=== PATIENT | female | born 1960 | race Hispanic/Latino ===

== ENCOUNTER 2017-12-03 16:36 | Emergency (ER) | payer MEDICAID ==
[~2017-12-03 16:36] MED LIST: ACET-2900 PO; ESOM20CA31 PO; GEMF600T3 PO; GLIM4TAB3 PO; LINA5TAB PO; LISI10TA7 PO; METF10004 PO; METO25TA6 PO; SIMV40TA2 PO; TRAV5DRO OU
[2017-12-03] MEDS ORDERED: SODIUM CHLORIDE 0.9% 1000ML 1,000 ML IV ONE (16:55)
[2017-12-03 17:02] LABS: EOSINOPHILS % (AUTO) 0.6 % (0.0-8.0); HEMATOCRIT 39.5 % (36-48); LYMPHOCYTES % (AUTO) 29.5 % (21.0-51.0); MEAN CORPUSCULAR HEMOGLOBIN 29.4 pg (27.0-33.0); MEAN CORPUSCULAR VOLUME 89.1 fL (79-99); MONOCYTES % (AUTO) 5.3 % (3.0-13.0); NEUTROPHILS % (AUTO) 63.6 % (40.0-77.0); PLATELET COUNT (AUTO) 305 K/uL (130-400); RED BLOOD CELL COUNT(AUTO) 4.44 MIL/uL (4.00-5.50); RED CELL DISTRIBUTION WIDTH 13.8 % (11.0-15.5); WHITE BLOOD COUNT (AUTO) 13.8 K/uL (4.8-10.8)
[2017-12-03 17:20] LABS: CREATININE 1.4 mg/dL (0.5-1.5)
[2017-12-03 17:32] LABS: POTASSIUM 3.9 mmol/L (3.5-5.1)
[2017-12-03] MEDS ORDERED: INSULIN HUMULIN R 100 UNIT/ML 3ML ONE (18:13)
== END 2017-12-03 18:26 | disposition home or self-care (01) ==
LOC: EDH 16:36
DX: E11.65 Type 2 diabetes mellitus with hyperglycemia (principal); E78.5 Hyperlipidemia, unspecified; I10 Essential (primary) hypertension; H40.9 Unspecified glaucoma; Z90.49 Acquired absence of other specified parts of digestive tract
CPT/HCPCS: 36415; 80048; 82948; 85025; 93005; 96360; 96372; 99285; J1815; J7030

== ENCOUNTER 2022-02-01 13:25 | Inpatient (IN) | payer MEDICAID ==
[~2022-02-01] VITALS: Ht 152.4 cm; Wt 64.4 kg
[2022-02-01 12:00] VITALS: BP 87/58
[~2022-02-01 13:25] MED LIST changes: -ACET-2900 PO; +ACET-3194 PO; -GEMF600T3 PO; +GEMF600T89 PO; -GLIM4TAB3 PO; +GLIM4TAB36 PO; +LISI10TA24 PO; -LISI10TA7 PO; +METF-446 PO; -METF10004 PO
[2022-02-01] MEDS ORDERED: ONDANSETRON 4MG INJ IV ONE (14:00)
[2022-02-01] MEDS ORDERED: ONDANSETRON 4MG INJ IVP ONE (14:00)
[2022-02-01] MEDS ORDERED: MORPHINE 4 MG SYG IVP ONE (14:00)
[2022-02-01] MEDS ORDERED: LACTATED RINGERS 1000ML 1,000 ML IV ONE (14:00)
[2022-02-01 14:03] LABS: BASOPHILS % (AUTO) 0.2 % (0.0-5.0); EOSINOPHILS % (AUTO) 0.1 % (0.0-8.0); HEMATOCRIT 26.9 % (36-48); LYMPHOCYTES % (AUTO) 10.6 % (21.0-51.0); MEAN CORPUSCULAR HEMOGLOBIN 28.7 pg (27.0-33.0); MEAN CORPUSCULAR VOLUME 89.7 fL (79-99); MONOCYTES % (AUTO) 6.7 % (3.0-13.0); NEUTROPHILS % (AUTO) 81.7 % (40.0-77.0); PLATELET COUNT (AUTO) 308 K/uL (130-400); RED CELL DISTRIBUTION WIDTH 13.1 % (11.0-15.5); WHITE BLOOD COUNT (AUTO) 19.1 K/uL (4.8-10.8)
[2022-02-01 14:17] LABS: ALBUMIN 3.2 g/dL (3.5-5.0); APPEARANCE,URINE CLEAR (CLEAR); BILIRUBIN,URINE NEGATIVE (NEGATIVE); COLOR,URINE YELLOW (YELLOW); CREATININE 1.4 mg/dL (0.5-1.5); GLUCOSE, URINE (UA) NEGATIVE (NEGATIVE); KETONES,URINE NEGATIVE (NEGATIVE); LEUKOCYTE ESTERASE ,URINE NEGATIVE (NEGATIVE); NITRATE,URINE NEGATIVE (NEGATIVE); OCCULT BLOOD,URINE NEGATIVE (NEGATIVE); POTASSIUM 4.3 mmol/L (3.5-5.1); PROTEIN,URINE NEGATIVE (NEGATIVE); TOTAL PROTEIN, SERUM 8.2 g/dL (6.0-8.3); UROBILINOGEN,URINE 0.2 mg/dL (0.2-1.0)
[2022-02-01] MEDS ORDERED: MORPHINE 2 MG SYG IVP SCH (14:30)
[2022-02-01] MEDS ORDERED: ZOSYN 3.375GM +NS 50ML IV SCH (14:30)
[2022-02-01] MEDS ORDERED: IOHEXOL 350 MG/ML 100ML INFUS..BTL IV ONE (14:54)
[2022-02-01] MEDS ORDERED: 0.9%NACL 1000ML 1,000 ML IV SCH ×2 (16:30)
[2022-02-01] MEDS ORDERED: MAG/ALUM/SIMETH 30 ML UDCUP PO PRN (17:00)
[2022-02-01] MEDS ORDERED: ACETAMINOPHEN WITH CODEINE 1 TAB TAB PO PRN ×2 (17:00)
[2022-02-01] MEDS ORDERED: LACTULOSE 20 GM/30 ML UDCUP PO PRN (17:00)
[2022-02-01] MEDS ORDERED: ONDANSETRON 4MG INJ IV PRN (17:00)
[2022-02-01] MEDS ORDERED: ACETAMINOPHEN 325 MG TAB PO PRN ×2 (17:00)
[2022-02-01] MEDS ORDERED: DIPHENHYDRAMINE HCL 25 MG CAPSULE PO PRN (17:00)
[2022-02-01] MEDS: LACTATED RINGERS 1000ML 1,000 ML IV SCH (18:01)
[2022-02-01] MEDS: FAMOTIDINE 20MG VIAL IV SCH (18:07)
[2022-02-01] MEDS: MORPHINE 4 MG SYG IV PRN (18:10)
[2022-02-01] MEDS ORDERED: GLUCAGON 1MG KIT 1 MG ML IM PRN (19:00)
[2022-02-01] MEDS ORDERED: DEXTROSE 50%-WATER 50 ML DISP.SYRIN IV PRN (19:00)
[2022-02-01] MEDS: 0.9%NACL 1000ML 1,000 ML IV SCH (19:00)
[2022-02-01] MEDS: INSULIN HUMULIN R 100 UNIT/ML 3ML SQ SCH (20:23)
[2022-02-01] MEDS: ZOSYN 3.375GM+NS 50ML 50 ML IV SCH (22:52)
[2022-02-02] VITALS: BP 87/58
[2022-02-02] MEDS ORDERED: GABA-529 PO (00:44)
[2022-02-02] MEDS ORDERED: trulicity (00:44)
[2022-02-02] MEDS ORDERED: METO25TA6 PO (00:44)
[2022-02-02] MEDS ORDERED: ROSU40TA21 PO (00:44)
[2022-02-02] MEDS ORDERED: METF-446 PO (00:44)
[2022-02-02] MEDS ORDERED: MELO-108 PO (00:44)
[2022-02-02] MEDS ORDERED: LISI20TA24 PO (00:44)
[2022-02-02 04:21] VITALS: BP 96/51
[2022-02-02] MEDS: ZOSYN 3.375GM+NS 50ML 50 ML IV SCH ×3 (05:22→20:24)
[2022-02-02 05:35] LABS: ALBUMIN 2.4 g/dL (3.5-5.0); BASOPHILS % (AUTO) 0.3 % (0.0-5.0); CREATININE 1.3 mg/dL (0.5-1.5); EOSINOPHILS % (AUTO) 0.1 % (0.0-8.0); HEMATOCRIT 23.8 % (36-48); LYMPHOCYTES % (AUTO) 10.7 % (21.0-51.0); MEAN CORPUSCULAR HEMOGLOBIN 29.2 pg (27.0-33.0); MEAN CORPUSCULAR HGB CONC 32.4 g/dL (32.0-36.0); MEAN CORPUSCULAR VOLUME 90.2 fL (79-99); MONOCYTES % (AUTO) 7.7 % (3.0-13.0); NEUTROPHILS % (AUTO) 80.4 % (40.0-77.0); PLATELET COUNT (AUTO) 267 K/uL (130-400); POTASSIUM 5.1 mmol/L (3.5-5.1); RED BLOOD CELL COUNT(AUTO) 2.64 MIL/uL (4.00-5.50); TOTAL PROTEIN, SERUM 6.6 g/dL (6.0-8.3); WHITE BLOOD COUNT (AUTO) 15.5 K/uL (4.8-10.8)
[2022-02-02] MEDS: INSULIN HUMULIN R 100 UNIT/ML 3ML SQ SCH ×4 (06:16→20:24)
[2022-02-02 07:10] VITALS: BP 95/58
[2022-02-02] MEDS: ENOXAPARIN SODIUM 30 MG/0.3 ML SQ SCH (09:03)
[2022-02-02] MEDS: FAMOTIDINE 20MG VIAL IV SCH (09:03)
[2022-02-02] MEDS: 0.9%NACL 1000ML 1,000 ML IV SCH (11:58)
[2022-02-02] MEDS: LACTATED RINGERS 1000ML 1,000 ML IV SCH ×2 (11:58→22:51)
[2022-02-02 12:18] VITALS: BP 95/57
[2022-02-02 16:00] VITALS: BP 90/57
[2022-02-02 22:10] VITALS: BP 97/60
[2022-02-03] VITALS (19 sets, daily range): BP systolic 69–116; BP diastolic 31–81
[2022-02-03] MEDS: 0.9%NACL 1000ML 1,000 ML IV SCH ×5 (00:19→21:00)
[2022-02-03] MEDS: MORPHINE 4 MG SYG IV PRN (01:55)
[2022-02-03] MEDS: ZOSYN 3.375GM+NS 50ML 50 ML IV SCH ×3 (04:27→20:57)
[2022-02-03 04:39] LABS: BASOPHILS % (AUTO) 0.3 % (0.0-5.0); HEMATOCRIT 26.3 % (36-48); LYMPHOCYTES % (AUTO) 7.8 % (21.0-51.0); MEAN CORPUSCULAR HEMOGLOBIN 28.4 pg (27.0-33.0); MEAN CORPUSCULAR HGB CONC 31.2 g/dL (32.0-36.0); MONOCYTES % (AUTO) 7.3 % (3.0-13.0); NEUTROPHILS % (AUTO) 83.9 % (40.0-77.0); PLATELET COUNT (AUTO) 278 K/uL (130-400); RED BLOOD CELL COUNT(AUTO) 2.89 MIL/uL (4.00-5.50); RED CELL DISTRIBUTION WIDTH 13.3 % (11.0-15.5); WHITE BLOOD COUNT (AUTO) 15.3 K/uL (4.8-10.8)
[2022-02-03 04:56] LABS: ALBUMIN 2.6 g/dL (3.5-5.0); CREATININE 1.4 mg/dL (0.5-1.5); POTASSIUM 4.6 mmol/L (3.5-5.1); TOTAL PROTEIN, SERUM 7.2 g/dL (6.0-8.3)
[2022-02-03] MEDS: INSULIN HUMULIN R 100 UNIT/ML 3ML SQ SCH ×4 (07:16→21:07)
[2022-02-03] MEDS: FAMOTIDINE 20MG VIAL IV SCH (08:27)
[2022-02-03] MEDS: ENOXAPARIN SODIUM 30 MG/0.3 ML SQ SCH (08:27)
[2022-02-03] MEDS ORDERED: LORAZEPAM 2 MG/ML 1 ML VIAL IVP PRN (10:30)
[2022-02-03] MEDS ORDERED: DIAZEPAM 5 MG/ML 2 ML SYG IV PRN (11:00)
[2022-02-03] MEDS ORDERED: VASOPRESSIN 20 UNITS in 0.9%NACL 100ML 100 ML IV SCH (14:30)
[2022-02-03] MEDS ORDERED: VANCOMYCIN PROTOCOL PER PHARMACY IV SCH (14:30)
[2022-02-03] MEDS ORDERED: PHENYLEPHRINE HCL 50 MG in 0.9% NACL 250ML 250 ML IV PRN (14:30)
[2022-02-03] MEDS ORDERED: SODIUM BICARB 50MEQ 50ML VIAL 150 ML ONE (14:46)
[2022-02-03 15:00] LABS: INR 1.53 (0.85-1.15); PROTHROMBIN TIME 16.3 SEC (9.6-11.6)
[2022-02-03] MEDS ORDERED: SODIUM BICARB 8.4% 50ML SYRING 150 MEQ in DEXTROSE 5%-WATER 1,000 ML IVP SCH (15:00)
[2022-02-03] MEDS ORDERED: SODIUM BICARB 50MEQ 50ML VIAL IV SCH (15:00)
[2022-02-03 15:11] LABS: ABG BASE EXCESS -7.3 mmol/L (-2.0-3.0); ABG HCO3 15.6 mmol/L (21.0-28.0); ABG OXYGEN SATURATION 96.7 % (95.0-99.0); ABG PCO2 23 mmHg (32-45)
[2022-02-03] MEDS ORDERED: VANCOMYCIN 1G/250ML KIT 250 ML IV SCH (16:00)
[2022-02-03] MEDS ORDERED: DIATR MEGLU/DIATRIZOATE SODIUM 30 ML BOTTLE ONE (17:21)
[2022-02-03 21:11] LABS: ABG BASE EXCESS 0.3 mmol/L (-2.0-3.0); ABG OXYGEN SATURATION 98.1 % (95.0-99.0); ABG PCO2 28 mmHg (32-45)
[2022-02-03] MEDS: GUAIFENESIN SUGAR-FREE 100 MG/5 ML UDCUP PO PRN (23:17)
[2022-02-04] VITALS (40 sets, daily range): BP systolic 104–158; BP diastolic 41–98
[2022-02-04] MEDS: GUAIFENESIN SUGAR-FREE 100 MG/5 ML UDCUP PO PRN ×4 (03:46→20:32)
[2022-02-04 03:59] LABS: BASOPHILS % (AUTO) 0.1 % (0.0-5.0); HEMATOCRIT 22.2 % (36-48); MEAN CORPUSCULAR HEMOGLOBIN 28.3 pg (27.0-33.0); MEAN CORPUSCULAR HGB CONC 32.9 g/dL (32.0-36.0); MONOCYTES % (AUTO) 7.1 % (3.0-13.0); NEUTROPHILS % (AUTO) 81.1 % (40.0-77.0); PLATELET COUNT (AUTO) 272 K/uL (130-400); RED BLOOD CELL COUNT(AUTO) 2.58 MIL/uL (4.00-5.50); RED CELL DISTRIBUTION WIDTH 13.4 % (11.0-15.5); WHITE BLOOD COUNT (AUTO) 14.1 K/uL (4.8-10.8)
[2022-02-04 04:27] LABS: ALBUMIN 2.5 g/dL (3.5-5.0); CREATININE 2.6 mg/dL (0.5-1.5); POTASSIUM 3.4 mmol/L (3.5-5.1)
[2022-02-04] MEDS: ZOSYN 3.375GM+NS 50ML 50 ML IV SCH ×3 (05:05→20:32)
[2022-02-04] MEDS: INSULIN HUMULIN R 100 UNIT/ML 3ML SQ SCH ×4 (06:39→20:36)
[2022-02-04] MEDS: 0.9%NACL 1000ML 1,000 ML IV SCH ×2 (06:39→09:33)
[2022-02-04 07:30] LABS: ABG BASE EXCESS -0.6 mmol/L (-2.0-3.0); ABG HCO3 22.5 mmol/L (21.0-28.0); ABG OXYGEN SATURATION 96.9 % (95.0-99.0); ABG PCO2 30 mmHg (32-45)
[2022-02-04] MEDS: FAMOTIDINE 20MG VIAL IV SCH (08:14)
[2022-02-04] MEDS ORDERED: VANCOMYCIN 500MG+NS 100ML 100 ML IV SCH (09:00)
[2022-02-04] MEDS ORDERED: FLUCONAZOLE 400 MG/NS 200 ML 200 ML IV SCH (09:00)
[2022-02-04] MEDS: ENOXAPARIN SODIUM 30 MG/0.3 ML SQ SCH (11:48)
[2022-02-04] MEDS ORDERED: 0.9%NACL 1000ML 1,000 ML IV ONE (13:30)
[2022-02-04] MEDS ORDERED: PHARMACY COMMUNICATION MISC SCH (14:30)
[2022-02-04] MEDS ORDERED: 0.9%NACL 1000ML 1,000 ML IV SCH (14:30)
[2022-02-04] MEDS: MICAFUNGIN 100MG+NS 100ML 100 ML IV SCH (16:01)
[2022-02-05] VITALS (41 sets, daily range): BP systolic 106–130; BP diastolic 40–96
[2022-02-05] MEDS: 0.9%NACL 1000ML 1,000 ML IV SCH ×2 (02:30→12:38)
[2022-02-05 03:36] LABS: BILIRUBIN,URINE MODERATE (NEGATIVE); GLUCOSE, URINE (UA) NEGATIVE (NEGATIVE); KETONES,URINE 5 mg/dL (NEGATIVE); LEUKOCYTE ESTERASE ,URINE MODERATE (NEGATIVE); NITRATE,URINE NEGATIVE (NEGATIVE); OCCULT BLOOD,URINE LARGE (NEGATIVE); PH,URINE 5.5 (5.0-8.0); PROTEIN,URINE 100 mg/dL (NEGATIVE); UROBILINOGEN,URINE 0.2 mg/dL (0.2-1.0)
[2022-02-05 03:38] LABS: APPEARANCE,URINE CLOUDY (CLEAR); COLOR,URINE AMBER (YELLOW)
[2022-02-05 03:40] LABS: RBC,URINE TNTC /HPF (0-1)
[2022-02-05 03:41] LABS: WBC,URINE 26-50 /HPF (0-1)
[2022-02-05 03:42] LABS: BACTERIA,URINE Few /HPF (None Seen)
[2022-02-05 03:43] LABS: SQUAMOUS EPITHELIAL CELL,UR Rare /HPF (0-2)
[2022-02-05 03:47] LABS: MEAN CORPUSCULAR HEMOGLOBIN 28.5 pg (27.0-33.0); MEAN CORPUSCULAR HGB CONC 33.2 g/dL (32.0-36.0); MEAN CORPUSCULAR VOLUME 85.9 fL (79-99); RED BLOOD CELL COUNT(AUTO) 2.56 MIL/uL (4.00-5.50); RED CELL DISTRIBUTION WIDTH 13.6 % (11.0-15.5); WHITE BLOOD COUNT (AUTO) 14.4 K/uL (4.8-10.8)
[2022-02-05 03:58] LABS: INR 2.1 (0.85-1.15); PROTHROMBIN TIME 21.9 SEC (9.6-11.6)
[2022-02-05 03:59] LABS: PARTIAL THROMBOPLASTIN TIME 28.8 SEC (26.3-35.5)
[2022-02-05 04:21] LABS: ALBUMIN 2.3 g/dL (3.5-5.0); BILIRUBIN,DIRECT 0.2 mg/dL (0.0-0.3); MAGNESIUM 1.3 mg/dL (1.80-2.40); TOTAL PROTEIN, SERUM 6.6 g/dL (6.0-8.3); URIC ACID 7.3 mg/dL (2.6-7.2)
[2022-02-05 04:35] LABS: % IRON SATURATION 39.6 % (22-44)
[2022-02-05 04:47] LABS: CREATININE 3.4 mg/dL (0.5-1.5)
[2022-02-05] MEDS: GUAIFENESIN SUGAR-FREE 100 MG/5 ML UDCUP PO PRN (05:55)
[2022-02-05] MEDS: ZOSYN 3.375GM+NS 50ML 50 ML IV SCH ×3 (05:55→20:12)
[2022-02-05] MEDS: INSULIN HUMULIN R 100 UNIT/ML 3ML SQ SCH ×4 (06:03→20:14)
[2022-02-05] MEDS ORDERED: MAGNESIUM 4GM PREMIX 100ML 100 ML IV PRN (07:30)
[2022-02-05] MEDS: FAMOTIDINE 20MG TAB PO SCH (08:10)
[2022-02-05] MEDS ORDERED: LACTULOSE 20 GM/30 ML UDCUP PO SCH (09:00)
[2022-02-05] MEDS ORDERED: EPOETIN ALFA-EPBX (NON-ESRD) 10,000 UNIT/ML VIAL SQ SCH (14:30)
[2022-02-05] MEDS: MICAFUNGIN 100MG+NS 100ML 100 ML IV SCH (15:10)
[2022-02-05] MEDS ORDERED: FUROSEMIDE 40MG VIAL IV STA (15:22)
[2022-02-05] MEDS: ALBUMIN (HUMAN) 25% 50 ML IV SCH ×2 (15:50→21:47)
[2022-02-05] MEDS: IPRATROPIUM/ALBUTEROL SULFATE 3 ML SOLUTION IH PRN (18:32)
[2022-02-05] MEDS: MIDODRINE HCL 5 MG TABLET PO SCH (20:12)
[2022-02-05] MEDS: HEPARIN 5,000 UNIT VIAL SQ SCH (20:13)
[2022-02-06] VITALS (16 sets, daily range): BP systolic 100–141; BP diastolic 55–77
[2022-02-06 04:29] LABS: BASOPHILS % (AUTO) 0.4 % (0.0-5.0); EOSINOPHILS % (AUTO) 0.6 % (0.0-8.0); HEMATOCRIT 22.1 % (36-48); LYMPHOCYTES % (AUTO) 12.8 % (21.0-51.0); MEAN CORPUSCULAR HEMOGLOBIN 28.3 pg (27.0-33.0); MEAN CORPUSCULAR HGB CONC 32.6 g/dL (32.0-36.0); MONOCYTES % (AUTO) 7.8 % (3.0-13.0); NEUTROPHILS % (AUTO) 75.9 % (40.0-77.0); NUCLEATED RED BLOOD CELLS 0.3 % (0.0-0.19); PLATELET COUNT (AUTO) 272 K/uL (130-400); RED BLOOD CELL COUNT(AUTO) 2.54 MIL/uL (4.00-5.50); RED CELL DISTRIBUTION WIDTH 13.8 % (11.0-15.5); WHITE BLOOD COUNT (AUTO) 11.4 K/uL (4.8-10.8)
[2022-02-06 04:39] LABS: INR 1.76 (0.85-1.15); PROTHROMBIN TIME 18.6 SEC (9.6-11.6)
[2022-02-06 04:40] LABS: PARTIAL THROMBOPLASTIN TIME 29.3 SEC (26.3-35.5)
[2022-02-06 04:57] LABS: ALBUMIN 2.7 g/dL (3.5-5.0); BILIRUBIN,DIRECT 0.2 mg/dL (0.0-0.3); CREATININE 4.4 mg/dL (0.5-1.5); MAGNESIUM 2.7 mg/dL (1.80-2.40); POTASSIUM 3.5 mmol/L (3.5-5.1); TOTAL PROTEIN, SERUM 6.6 g/dL (6.0-8.3)
[2022-02-06] MEDS: ZOSYN 3.375GM+NS 50ML 50 ML IV SCH ×2 (05:05→21:14)
[2022-02-06 05:08] LABS: CRP QUANTITATIVE 174.6 mg/L (0.00-9.0)
[2022-02-06] MEDS: ALBUMIN (HUMAN) 25% 50 ML IV SCH (06:20)
[2022-02-06] MEDS: INSULIN HUMULIN R 100 UNIT/ML 3ML SQ SCH ×4 (07:30→21:00)
[2022-02-06] MEDS: FAMOTIDINE 20MG TAB PO SCH (08:38)
[2022-02-06] MEDS: HEPARIN 5,000 UNIT VIAL SQ SCH ×2 (08:43→22:35)
[2022-02-06] MEDS: MIDODRINE HCL 5 MG TABLET PO SCH ×3 (10:36→21:14)
[2022-02-06] MEDS: SODIUM BICARBONATE 650 MG TAB PO SCH ×3 (10:59→21:14)
[2022-02-06] MEDS: GUAIFENESIN SUGAR-FREE 100 MG/5 ML UDCUP PO PRN (14:27)
[2022-02-06] MEDS: MICAFUNGIN 100MG+NS 100ML 100 ML IV SCH (15:10)
[2022-02-06] MEDS ORDERED: FUROSEMIDE 100MG VIAL IVP ONE ×2 (18:30→20:00)
[2022-02-07] VITALS (7 sets, daily range): BP systolic 107–123; BP diastolic 59–78
[2022-02-07 03:42] LABS: BASOPHILS % (AUTO) 0.8 % (0.0-5.0); EOSINOPHILS % (AUTO) 1.4 % (0.0-8.0); HEMATOCRIT 23.8 % (36-48); LYMPHOCYTES % (AUTO) 11.9 % (21.0-51.0); MEAN CORPUSCULAR HEMOGLOBIN 28.7 pg (27.0-33.0); MEAN CORPUSCULAR HGB CONC 33.2 g/dL (32.0-36.0); MEAN CORPUSCULAR VOLUME 86.5 fL (79-99); MONOCYTES % (AUTO) 9.7 % (3.0-13.0); PLATELET COUNT (AUTO) 335 K/uL (130-400); RED BLOOD CELL COUNT(AUTO) 2.75 MIL/uL (4.00-5.50); RED CELL DISTRIBUTION WIDTH 13.8 % (11.0-15.5)
[2022-02-07 04:06] LABS: ALBUMIN 2.5 g/dL (3.5-5.0); BILIRUBIN,DIRECT 0.2 mg/dL (0.0-0.3); CREATININE 5.2 mg/dL (0.5-1.5); POTASSIUM 3.7 mmol/L (3.5-5.1); TOTAL PROTEIN, SERUM 6.3 g/dL (6.0-8.3)
[2022-02-07 04:27] LABS: INR 1.6 (0.85-1.15)
[2022-02-07 04:29] LABS: PARTIAL THROMBOPLASTIN TIME 30.2 SEC (26.3-35.5)
[2022-02-07] MEDS: INSULIN HUMULIN R 100 UNIT/ML 3ML SQ SCH ×4 (06:44→21:23)
[2022-02-07] MEDS: SODIUM BICARBONATE 650 MG TAB PO SCH ×3 (08:21→21:07)
[2022-02-07] MEDS: FAMOTIDINE 20MG TAB PO SCH (08:22)
[2022-02-07] MEDS: MIDODRINE HCL 5 MG TABLET PO SCH ×3 (08:22→21:07)
[2022-02-07] MEDS: HEPARIN 5,000 UNIT VIAL SQ SCH ×2 (08:25→21:22)
[2022-02-07] MEDS: ZOSYN 3.375GM+NS 50ML 50 ML IV SCH ×2 (08:25→21:07)
[2022-02-07] MEDS: GUAIFENESIN SUGAR-FREE 100 MG/5 ML UDCUP PO PRN (08:38)
[2022-02-07] MEDS: MICAFUNGIN 100MG+NS 100ML 100 ML IV SCH (13:50)
[2022-02-07] MEDS: IPRATROPIUM/ALBUTEROL SULFATE 3 ML SOLUTION IH PRN ×2 (14:02→21:29)
[2022-02-07] MEDS ORDERED: LIDOCAINE PF 100MG/5ML (2%) SYRINGE 5ML ONE (16:57)
[2022-02-07] MEDS ORDERED: PHENYLEPHRINE HCL 10 MG/ML 1ML VIAL IV ONE (16:57)
[2022-02-07] MEDS ORDERED: SUCCINYLCHOLINE CHLORIDE 20 MG/ML 10 ML VIAL ONE (16:57)
[2022-02-07] MEDS ORDERED: ONDANSETRON 4MG INJ ONE (16:58)
[2022-02-07] MEDS ORDERED: PROPOFOL 10 MG/ML 20ML VIAL IV ONE (16:58)
[2022-02-07] MEDS ORDERED: EPHEDRINE SULFATE 50 MG/ML AMPULE ONE (16:58)
[2022-02-07] MEDS ORDERED: FUROSEMIDE 40MG VIAL ONE (18:32)
[2022-02-07] MEDS ORDERED: FUROSEMIDE 40MG VIAL IV STA (19:13)
[2022-02-07] MEDS: FUROSEMIDE 40MG VIAL IV SCH (19:42)
[2022-02-08] MEDS ORDERED: DIATR MEGLU/DIATRIZOATE SODIUM 30 ML BOTTLE ONE (00:22)
[2022-02-08 03:40] VITALS: BP 128/77
[2022-02-08 04:04] LABS: BASOPHILS % (AUTO) 0.5 % (0.0-5.0); EOSINOPHILS % (AUTO) 0.4 % (0.0-8.0); HEMATOCRIT 23.9 % (36-48); LYMPHOCYTES % (AUTO) 12.2 % (21.0-51.0); MEAN CORPUSCULAR HGB CONC 33.1 g/dL (32.0-36.0); MEAN CORPUSCULAR VOLUME 87.9 fL (79-99); MONOCYTES % (AUTO) 15.5 % (3.0-13.0); NEUTROPHILS % (AUTO) 64.8 % (40.0-77.0); NUCLEATED RED BLOOD CELLS 2.9 % (0.0-0.19); PLATELET COUNT (AUTO) 452 K/uL (130-400); RED BLOOD CELL COUNT(AUTO) 2.72 MIL/uL (4.00-5.50); RED CELL DISTRIBUTION WIDTH 14.1 % (11.0-15.5); WHITE BLOOD COUNT (AUTO) 16.6 K/uL (4.8-10.8)
[2022-02-08 04:33] LABS: ALBUMIN 2.6 g/dL (3.5-5.0); BILIRUBIN,DIRECT 0.2 mg/dL (0.0-0.3); CREATININE 6.1 mg/dL (0.5-1.5); POTASSIUM 3.2 mmol/L (3.5-5.1); TOTAL PROTEIN, SERUM 6.7 g/dL (6.0-8.3)
[2022-02-08] MEDS: INSULIN HUMULIN R 100 UNIT/ML 3ML SQ SCH ×4 (05:55→20:31)
[2022-02-08] MEDS: IPRATROPIUM/ALBUTEROL SULFATE 3 ML SOLUTION IH PRN ×4 (06:37→23:44)
[2022-02-08 07:00] VITALS: BP 116/75
[2022-02-08] MEDS ORDERED: KCL 20 MEQ ERTAB PO PRN (07:30)
[2022-02-08] MEDS ORDERED: POTASSIUM CHLORIDE 20MEQ/100ML 100 ML IV PRN (07:30)
[2022-02-08] MEDS ORDERED: LIDOCAINE HCL-MPF 1% 2ML VIAL IV PRN (07:30)
[2022-02-08] MEDS ORDERED: POTASSIUM CHLORIDE 10% ELIXIR 20 MEQ/15 ML UDCUP PO PRN (07:30)
[2022-02-08] MEDS: FUROSEMIDE 40MG VIAL IV SCH ×2 (09:21→20:29)
[2022-02-08] MEDS: SODIUM BICARBONATE 650 MG TAB PO SCH ×2 (09:23→20:28)
[2022-02-08] MEDS: ZOSYN 3.375GM+NS 50ML 50 ML IV SCH ×2 (09:23→20:27)
[2022-02-08] MEDS: FAMOTIDINE 20MG TAB PO SCH (09:24)
[2022-02-08] MEDS: MIDODRINE HCL 5 MG TABLET PO SCH ×3 (09:24→20:28)
[2022-02-08] MEDS: HEPARIN 5,000 UNIT VIAL SQ SCH ×2 (09:33→20:30)
[2022-02-08 11:00] VITALS: BP 119/73
[2022-02-08 15:00] VITALS: BP 120/75
[2022-02-08] MEDS: MICAFUNGIN 100MG+NS 100ML 100 ML IV SCH (15:35)
[2022-02-08] MEDS: GUAIFENESIN SUGAR-FREE 100 MG/5 ML UDCUP PO PRN (16:07)
[2022-02-08] MEDS ORDERED: HYDROXYZINE 25 MG TABLET PO PRN (19:00)
[2022-02-08 20:00] VITALS: BP 104/71
[2022-02-08] MEDS: PAROXETINE HCL 20 MG TABLET PO SCH (20:37)
[2022-02-08] MEDS ORDERED: TRAZODONE HCL 50 MG TAB PO SCH (21:00)
[2022-02-08 23:50] VITALS: BP 124/70
[2022-02-09 04:21] VITALS: BP 136/88
[2022-02-09 04:42] LABS: HEMATOCRIT 24.7 % (36-48); MEAN CORPUSCULAR HGB CONC 32.8 g/dL (32.0-36.0); MEAN CORPUSCULAR VOLUME 88.5 fL (79-99); RED BLOOD CELL COUNT(AUTO) 2.79 MIL/uL (4.00-5.50); RED CELL DISTRIBUTION WIDTH 14.4 % (11.0-15.5); WHITE BLOOD COUNT (AUTO) 13.4 K/uL (4.8-10.8)
[2022-02-09 04:52] LABS: CREATININE 6.6 mg/dL (0.5-1.5); POTASSIUM 4.3 mmol/L (3.5-5.1)
[2022-02-09] MEDS: INSULIN HUMULIN R 100 UNIT/ML 3ML SQ SCH (06:19)
[2022-02-09] MEDS: IPRATROPIUM/ALBUTEROL SULFATE 3 ML SOLUTION IH PRN (06:41)
[2022-02-09 08:43] LABS: ALBUMIN 2.5 g/dL (3.5-5.0); BILIRUBIN,DIRECT 0.3 mg/dL (0.0-0.3); TOTAL PROTEIN, SERUM 6.7 g/dL (6.0-8.3)
[2022-02-09] MEDS: FAMOTIDINE 20MG TAB PO SCH (08:45)
[2022-02-09] MEDS: MIDODRINE HCL 5 MG TABLET PO SCH (08:45)
[2022-02-09] MEDS: PAROXETINE HCL 20 MG TABLET PO SCH (08:45)
[2022-02-09] MEDS: SODIUM BICARBONATE 650 MG TAB PO SCH (08:45)
[2022-02-09] MEDS: FUROSEMIDE 40MG VIAL IV SCH (08:46)
[2022-02-09] MEDS: HEPARIN 5,000 UNIT VIAL SQ SCH (08:58)
[2022-02-09] MEDS: ZOSYN 3.375GM+NS 50ML 50 ML IV SCH (11:21)
== END 2022-02-09 15:20 | disposition left against medical advice (07) | DRG 720 ==
LOC: EDH 13:25 → EDHIP 13:26 → 3AH 21:01 → 2BH 02-03 15:30 → 2AH 02-06 11:50 → 3BH 02-09 06:02
PROVIDERS: ADMIT Hospitalist; ATTEND Hospitalist
PROC: 02HV33Z Insertion of Infusion Device into Superior Vena Cava, Percutaneous Approach (ICD-10-PCS; principal; 2022-02-04)
DX: A41.9 Sepsis, unspecified organism (principal); J96.91 Respiratory failure, unspecified with hypoxia; K72.00 Acute and subacute hepatic failure without coma; N17.0 Acute kidney failure with tubular necrosis; R65.21 Severe sepsis with septic shock; E11.9 Type 2 diabetes mellitus without complications; D64.9 Anemia, unspecified; K35.33 Acute appendicitis with perforation, localized peritonitis, and gangrene, with abscess; E87.1 Hypo-osmolality and hyponatremia; F32.1 Major depressive disorder, single episode, moderate; E78.5 Hyperlipidemia, unspecified; I10 Essential (primary) hypertension; E83.42 Hypomagnesemia; E87.70 Fluid overload, unspecified; F41.1 Generalized anxiety disorder; J81.1 Chronic pulmonary edema; K59.00 Constipation, unspecified; M19.90 Unspecified osteoarthritis, unspecified site; M81.0 Age-related osteoporosis without current pathological fracture; Z51.5 Encounter for palliative care; Z66 Do not resuscitate; Z82.3 Family history of stroke; Z82.49 Family history of ischemic heart disease and other diseases of the circulatory system; Z82.62 Family history of osteoporosis; Z83.3 Family history of diabetes mellitus; Z87.891 Personal history of nicotine dependence; Z90.49 Acquired absence of other specified parts of digestive tract
CPT/HCPCS: 36415; 36600; 71045; 74176; 74177; 76700; 80048; 80053; 80076; 81001; 81003; 82140; 82248; 82435; 82728; 82803; 82947; 82948; 83540; 83550; 83605; 83690; 83735; 84100; 84132; 84295; 84550; 85018; 85025; 85027; 85610; 85730; 86140; 87040; 87088; 93005; 93306; 93356; 93970; 94640; 94664; 97039; G0378; J0330; J1450; J1644; J1650; J1815; J1940; J2001; J2248; J2270; J2370; J2405; J2543; J2704; J3360; J3370; J3475; J3490; J7030; J7070; J7120; P9047; Q9963; Q9967